=== PATIENT | female | born 1985 | race African-American/Black ===

== ENCOUNTER 2021-10-30 19:08 | Emergency (ER) | payer MEDICAID ==
[~2021-10-30] VITALS: Ht 154.9 cm; Wt 74.8 kg
--- NOTE | 2021-10-30 19:35 | NUR ---
AFTER BEING TRIAGED, PATIENT WAS PLACED BACK INTO WAITING ROOM DUE TO NO BEDS AVAILABLE IN THE ER.
--- NOTE | 2021-10-30 22:00 | NUR ---
PATIENT LEFT WAITING ROOM AND WAS NOT SEEN BY ERMD.
== END 2021-10-30 22:00 | disposition left against medical advice (07) ==
LOC: ER 19:11
DX: Z53.21 Procedure and treatment not carried out due to patient leaving prior to being seen by health care provider (principal)
CPT/HCPCS: A4663